=== PATIENT | female | born 1990 | race Caucasian/White ===

== ENCOUNTER 2020-06-06 20:24 | Emergency (ER) | payer OTHER ==
[~2020-06-06 20:24] MED LIST: DESYREL 50 MG T50 MG PO; DOK250 MG PO; FOLIC ACID1 MG PO; KEPPRA750 MG PO; LITHIUM CARBON300 M2 PO; LOW DOSE ASPIRI81 MG PO; OMNICEF 300 MG300 MG PO; PERCOCET 7.5-31 EACH PO; PRENATAL TABLE1 EAC1 PO; PYRIDIUM100 MG PO; QUETIAPINE FUMA50 MG PO; TOPIRAMATE50 MG PO; VISTARIL 25 MG25 MG PO; ZOFRAN4 MG PO; ZOMIG5 MG PO
[2020-06-06 23:48] LABS: HEMOGLOBIN 15.8 gm/dl (12.3-15.3); RED BLOOD COUNT 5.48 M/UL (4.00-5.10); WHITE BLOOD COUNT 6.5 K/UL (4.5-11.0)
[2020-06-07 00:07] LABS: BUN/CREATININE RATIO 15 (0-10)
[2020-06-07] MEDS ORDERED: REGLAN10 MG PO (02:22)
[2020-06-07] MEDS ORDERED: BENTYL 20MG TAB20 MG PO (02:22)
== END 2020-06-07 02:36 | disposition home or self-care (01) ==
LOC: ER1 20:24
PROVIDERS: Physician Assistant
DX: R10.84 Generalized abdominal pain (principal); R11.2 Nausea with vomiting, unspecified; R19.7 Diarrhea, unspecified; F41.9 Anxiety disorder, unspecified
CPT/HCPCS: 80053; 81001; 83605; 83690; 84703; 85025; 87086; 96374; 99284; J2765; Q9967

== ENCOUNTER → 2020-07-02 | Outpatient (CLI) | payer OTHER ==
[~2020-07-02] MED LIST changes: +BENTYL 20MG TAB20 MG PO; +REGLAN10 MG PO
[2020-07-02 12:54] LABS: RED BLOOD COUNT 5.03 M/UL (4.00-5.10)
[2020-07-02 13:10] LABS: BUN/CREATININE RATIO 13 (0-10)
[2020-07-03 17:09] LABS: CHOLESTEROL, TOTAL 155 mg/dL (100-199); HDL SIZE 9.2 nm (>=9.2); HDL-C 53 mg/dL (>39); LARGE HDL-P 6.9 umol/L (>=4.8); LARGE VLDL-P 2.1 nmol/L (<=2.7); LDL SIZE 20.7 nm (>20.5); LDL SIZE 20.7 nm (>=20.8); LDL-C 90 mg/dL (0-99); LDL-P 780 nmol/L (<1000); LP-IR SCORE 36 (<=45); SMALL LDL-P 224 nmol/L (<=527); TRIGLYCERIDES 59 mg/dL (0-149); VLDL SIZE 42.6 nm (<=46.6)
== END ==
LOC: LAB 10:59
DX: Z00.8 Encounter for other general examination (principal); Z79.899 Other long term (current) drug therapy
CPT/HCPCS: 36415; 80053; 80061; 82607; 83036; 83704; 84443; 85027

== ENCOUNTER 2020-12-26 21:09 | Emergency (ER) | payer OTHER ==
[2020-12-26 22:30] LABS: HEMOGLOBIN 14.3 gm/dl (12.3-15.3); RED BLOOD COUNT 5.06 M/UL (4.00-5.10); WHITE BLOOD COUNT 6.5 K/UL (4.5-11.0)
[2020-12-26 22:40] LABS: BUN/CREATININE RATIO 11 (0-10)
== END 2020-12-27 00:12 | disposition home or self-care (01) ==
LOC: ER1 21:09
PROVIDERS: Physician Assistant
DX: G40.409 Other generalized epilepsy and epileptic syndromes, not intractable, without status epilepticus (principal); F17.290 Nicotine dependence, other tobacco product, uncomplicated; Z88.0 Allergy status to penicillin
CPT/HCPCS: 71045; 80053; 80307; 81001; 84703; 85025; 87086; 93005; 99284

== ENCOUNTER 2021-03-24 19:39 | Emergency (ER) | payer OTHER ==
[2021-03-24] MEDS ORDERED: CYCLOBENZAPRINE10 MG PO (21:18)
[2021-03-24] MEDS ORDERED: NAPROSYN500 MG PO (21:18)
== END 2021-03-24 21:28 | disposition home or self-care (01) ==
LOC: ER1 19:39
DX: M54.50 Low back pain, unspecified (principal); F17.200 Nicotine dependence, unspecified, uncomplicated
CPT/HCPCS: 96372; 99283; J1885

== ENCOUNTER 2021-06-14 12:41 | Emergency (ER) | payer OTHER ==
[~2021-06-14 12:41] MED LIST changes: +CYCLOBENZAPRINE10 MG PO; +NAPROSYN500 MG PO
[2021-06-14] MEDS ORDERED: BACTRIM DS TAB1 EACH PO (16:30)
[2021-06-14] MEDS ORDERED: MEDROL DOSEPAK 24 MG PO (16:30)
[2021-06-14] MEDS ORDERED: IBUPROFEN600 MG PO (16:30)
== END 2021-06-14 16:49 | disposition home or self-care (01) ==
LOC: ER1 12:41
DX: R22.0 Localized swelling, mass and lump, head (principal); F17.290 Nicotine dependence, other tobacco product, uncomplicated; Z86.73 Personal history of transient ischemic attack (TIA), and cerebral infarction without residual deficits; Z88.1 Allergy status to other antibiotic agents; Z88.8 Allergy status to other drugs, medicaments and biological substances
CPT/HCPCS: 70450; 70486; 96374; 99283; J1100

== ENCOUNTER 2021-12-07 22:19 | Emergency (ER) | payer OTHER ==
[~2021-12-07 22:19] MED LIST changes: +AJOVY225 MG/1.5 SQ; +AMITRIPTYLINE H25 MG PO; +BACTRIM DS TAB1 EACH PO; +CLOBETASOL TOP; +EFFEXOR XR37.5 MG PO; +FLONASE 0.05% N16 GM; +HYDROCHLOROTH12.5 MG PO; +IBU600 MG PO; +IBUPROFEN600 MG PO; +LAMOTRIGINE150 MG PO; +LISINOPRIL5 MG PO; +MEDROL DOSEPAK 24 MG PO; +MELATONIN3 MG PO; +OLANZAPINE5 MG PO; +OMEPRAZOLE20 MG PO; +PROPRANOLOL HCL20 MG PO; +RIZATRIPTAN10 M1 PO; +VENLAFAXINE HCL75 M2 PO; +VISTARIL25 MG PO; +VITAMIN D21250 MCG PO
[2021-12-07 23:24] LABS: HEMOGLOBIN 12.6 gm/dl (12.3-15.3); RED BLOOD COUNT 4.52 M/UL (4.00-5.10); WHITE BLOOD COUNT 7.7 K/UL (4.5-11.0)
[2021-12-07 23:56] LABS: BUN/CREATININE RATIO 13 (0-10)
== END 2021-12-08 02:30 | disposition left against medical advice (07) ==
LOC: ER1 22:19
PROVIDERS: Family Medicine
DX: F41.9 Anxiety disorder, unspecified (principal)
CPT/HCPCS: 71045; 80053; 82550; 82553; 83880; 84484; 85025; 93005; 99281